=== PATIENT | male | born 1965 | race Caucasian/White ===

== ENCOUNTER 2024-05-24 10:58 | Emergency (ER) | payer OTHER, SELFPAY ==
[2024-05-24 11:09] VITALS: BP 164/109
[2024-05-24 11:34] LABS: % Basophils 0.6 % (0-2); % Eosinophils 3.6 % (0-6); % Immature Granulocytes 0.3 % (0-0.5); % Monocytes 6.5 % (1.7-9.3); Absolute Eosinophils 0.2 10^3/uL (0-0.7); Absolute Lymphocytes 2.6 10^3/uL (1.2-3.4); Absolute Monocytes 0.4 10^3/uL (0.1-0.6); Absolute Neutrophils 3.2 10^3/uL (1.4-6.5); Hematocrit 35.3 % (39.0-52.0); Mean Corp Hgb Conc. 31.2 g/dL (33.0-37.0); Mean Corpuscular Hgb 18.9 pg (27.0-31.0); Mean Corpuscular Volume 60.8 fL (80.0-94.0); Mean Platelet Volume 8.2 fL (7.4-10.4); Nucleated Red Blood Cells % 0 % (-); Platelet Count 214 10^3/uL (130-400); Red Blood Cell Count 5.81 10^6/uL (4.70-6.10); White Blood Cell Count 6.5 10^3/uL (4.8-10.8)
[2024-05-24 11:55] LABS: ALT (SGPT) 61 U/L (0-50); AST (SGOT) 37 U/L (17-59); Albumin 4.7 g/dl (3.5-5.0); Alkaline Phosphatase 67 U/L (38-126); Blood Urea Nitrogen 10 mg/dl (9-20); Calcium 9.4 mg/dl (8.4-10.2); Carbon Dioxide 31 mmol/L (22-30); Chloride 102 mmol/L (98-107); Glucose 93 mg/dl (70-99); Potassium 3.4 mmol/L (3.5-5.1); Sodium 142 mmol/L (135-145); Total Protein 7.8 g/dl (6.3-8.2); eGFR > 60.00
[2024-05-24 12:02] LABS: Troponin I < 0.012 ng/ml
[2024-05-24 13:40] VITALS: BP 156/97
[2024-05-24 13:57] VITALS: BP 161/92
[2024-05-24 14:00] VITALS: BP 143/100
--- NOTE | 2024-05-24 14:02 | ED.GENMED ---
History of Present Illness
General
Chief Complaint: Blood Pressure Problem
Time Seen by Provider: 05/24/24 13:37
History of Present Illness
History of Present Illness:
Patient is a 58-year-old male with past medical history of anemia here today for evaluation of elevated blood pressure. Patient states over the past couple of days he has had several episodes of epistaxis. Today he was at his friend's house who
told him to check his blood pressure and when he did it was noted to be elevated. The patient therefore presents to the emergency department today for evaluation. Epistaxis has since resolved. He does endorse mild neck pain and a very slight
headache. He also endorses mild lower central chest pain/upper epigastric pain that comes and goes, however, patient states he has had this pain for years and it has not changed for many years. No vomiting. No difficulty breathing. No numbness
or tingling. No focal weakness. No dizziness. No visual changes.
Review of Systems
Review of Systems
All Other Systems: ROS reviewed and negative except as documented in HPI and ROS
Phy Exam
Physical Exam
Physical Exam:
GENERAL: Alert , in no apparent distress
EYE: pupils equal and reactive to light, extraocular movements intact
NECK: Supple, no significant adenopathy.
ENT: o/p clr, mmm.
CARDIAC: Regular rate and rhythm .
LUNGS: Clear breath sounds bilaterally, no acute respiratory distress, no wheezes/rales/rhonchi
ABDOMEN: Soft, without focal tenderness, no r/g, no cvat
NEUROLOGICAL: Alert and oriented, no focal neuro deficits, cranial nerves II through XII intact, moving all extremities, normal sensation and motor
SKIN: Warm and dry, skin intact.
MUSCULOSKELETAL: No edema, well perfused.
PSYCH: Normal and appropriate interaction.
Course
Orders/Labs/Results
Orders:
Orders
05/24/24 11:12
ECG [Electrocardiogram (*1)] Urgent
Reason for Study: Chest Pain
EKG- Treatment ONCE
05/24/24 11:19
Complete Blood Count/With Diff Urgent
Comprehensive Metabolic Panel Urgent
Troponin I Urgent
05/24/24 14:40
Troponin I Urgent
Abnormal Lab Results
05/24/24
11:19
Hgb 11.0 L g/dL
(13.0-18.0)
Hct 35.3 L %
(39.0-52.0)
MCV 60.8 L fL
(80.0-94.0)
MCH 18.9 L pg
(27.0-31.0)
MCHC 31.2 L g/dL
(33.0-37.0)
RDW 18.0 H %
(11.5-14.5)
Potassium 3.4 L mmol/L
(3.5-5.1)
Carbon Dioxide 31 H mmol/L
(22-30)
ALT 61 H U/L
(0-50)
05/24/24 11:19
05/24/24 11:19
Vital Signs
Initial and Last Documented VS:
Initial Vital Signs
Temp Pulse Resp BP Pulse Ox
98.0 F 81 18 164/109 97
05/24/24 11:09 05/24/24 11:09 05/24/24 11:09 05/24/24 11:09 05/24/24 11:09
Last Documented Vital Signs
Temp Pulse Resp BP Pulse Ox
98.0 F 86 15 137/83 99
05/24/24 11:09 05/24/24 15:15 05/24/24 15:15 05/24/24 15:00 05/24/24 15:15
MDM/Problems Addressed
Differential Diagnosis Includes:
Patient is a 58-year-old male here today for evaluation of elevated blood pressure. Overall, patient appears very well. Vitals remarkable for a moderately elevated blood pressure. Physical examination described above. Patient is neurologically
intact without acute focal deficits appreciated. Will closely monitor the patient's blood pressure and repeat. Will obtain an EKG and screening labs. Discussed obtaining a CXR but patient declined.
05/24/2024 15:56: Screening labs reveal mild anemia which is consistent with the patient's baseline. Potassium 3.4. EKG nonischemic. Troponin x 2 negative. Patient reassessed. He was made aware of findings. At this time, do not suspect ACS or
hypertensive emergency. Blood pressure improving overall. Patient appears well at this time and will be recommended to closely monitor his blood pressure and follow-up with his doctor. He voices understanding of the above plan. Return precautions
given. He appears well and stable for discharge. All questions answered.
*Critical Care Note
Total Time (30-74mins, 75-104mins- exclusive of procedures): Not Applicable
ED Attending Note
-
Portions of this chart may have been created with voice recognition software.� Occasional wrong word or��sound alike� substitutions may have occurred due to the inherent limitations of voice recognition software.
Discharge Plan
Departure
Patient Disposition: Home (Routine Discharge)
Date of Disposition: 05/24/24
Time of Disposition: 15:45
Patient with high blood pressure during this ER visit?: Yes
Condition: Fair
Discharge Problem:
Elevated blood pressure reading
Instructions: High Blood Pressure (DC)
Referrals:
UNKNOWN - PT DOES,NOT KNOW [Family Provider] -
Activity Restrictions/Additional Instructions:
You were seen today for evaluation of elevated blood pressure.
Your blood pressure was initially noted to be elevated but this improved without medication.
Your blood work reveals mild anemia with a hemoglobin of 11.0. Your potassium is also mildly low at 3.4.
Your EKG is normal.
Please monitor your blood pressure at home and follow up with your doctor for further testing and evaluation.
Return for any new, worsening, or concerning symptoms.
Interventions
Interventions:
ED- Cardiac Assessment Last Done: 05/24/24 15:23
ED- Neurological Assessment Last Done: 05/24/24 15:23
ED- Pulmonary Assessment Last Done: 05/24/24 15:23
Discharge Date and Time
Print Language: AFGHAN
[2024-05-24 15:00] VITALS: BP 137/83
[2024-05-24 15:22] LABS: Troponin I < 0.012 ng/ml
== END 2024-05-24 16:38 | disposition home or self-care (01) ==
LOC: EMR 10:58
PROVIDERS: Emergency Medicine; Physician Assistant; EMERGENCY PHYSICIAN Emergency Medicine
DX: R03.0 Elevated blood-pressure reading, without diagnosis of hypertension (principal); D64.9 Anemia, unspecified
CPT/HCPCS: 99284; 80053; 84484; 85025; 93005